=== PATIENT | female | born 1970 | race Caucasian/White ===

== ENCOUNTER 2020-06-24 18:28 | Emergency (ER) | payer MEDICAID, MEDICARE ==
[2020-06-24] MEDS ORDERED: Meclizine 25 MG Tab PO ONE (18:53)
[2020-06-24] MEDS ORDERED: Sodium Chloride 0.9% 1,000 ML IV ONE (18:53)
--- NOTE | 2020-06-24 19:10 | EDM.PDOC ---
ED HPI GENERAL MEDICAL PROBLEM - General Chief Complaint: General Stated Complaint: FEVER, COVID-19 + Time Seen by Provider: 06/24/20 18:53 Source of Information: Reports: Patient History Limitations: Reports: No Limitations - History of Present Illness INITIAL COMMENTS - FREE TEXT/NARRATIVE: Patient presents with vertigo for the last 8 days. She is covid positive for about 10 days. Diarrhea 3x/day yesterday and today. No vomiting. She can't drink large amounts of water due to history of gastric bypass and thinks she may be dehydrated. - Related Data Allergies Allergy/AdvReac Type Severity Reaction Status Date / Time morphine Allergy Vomiting Verified 06/24/20 18:33 Home Meds: Home Meds Cyclobenzaprine HCl 10 mg PO TID PRN 04/22/16 [History] Levothyroxine Sodium 100 mcg PO DAILY 04/22/16 [History] rOPINIRole [Requip] 1 tab PO BEDTIME 04/22/16 [History] Hydrocodone/Acetaminophen [Hydrocodon-Acetaminophen 5-300] 1 - 2 each PO Q4H PRN 08/26/16 [History] FLUoxetine [PROzac] 40 mg PO DAILY 06/24/20 [History] Past Medical History Cardiovascular History: Reports: Hypertension Genitourinary History: Reports: Other (See Below) Other Genitourinary History: Recent UTI Musculoskeletal History: Reports: Arthritis Psychiatric History: Reports: Depression Endocrine/Metabolic History: Reports: Hypothyroidism - Past Surgical History GI Surgical History: Reports: Bariatric Procedure, Other (See Below) Female Surgical History: Reports: Section, Hysterectomy ED ROS GENERAL - Review of Systems Review Of Systems: See Below Constitutional: Reports: Fever (up to 102 at home.) HEENT: Denies: Ear Pain, Throat Pain, Vision Change Respiratory: Denies: Shortness of Breath, Cough Cardiovascular: Reports: Lightheadedness. Denies: Chest Pain, Syncope GI/Abdominal: Reports: Diarrhea. Denies: Abdominal Pain, Vomiting : Denies: Dysuria, Flank Pain Musculoskeletal: Denies: Neck Pain, Shoulder Pain, Arm Pain, Back Pain, Hand Pain Skin: Denies: Cyanosis, Jaundice, Mottled, Pallor, Diaphoresis Neurological: Denies: Confusion, Headache, Seizure, Syncope, Trouble Speaking Psychiatric: Denies: Agitation, Confusion ED EXAM, GENERAL - Physical Exam Exam: See Below Exam Limited By: No Limitations General Appearance: Alert, WD/WN, No Apparent Distress Eye Exam: Bilateral Eye: EOMI, Normal Inspection, PERRL Ears: Normal External Exam, Normal Canal, Hearing Grossly Normal, Normal TMs Nose: Normal Inspection, No Blood Throat/Mouth: Normal Inspection, Normal Lips, Normal Oropharynx, Normal Voice, No Airway Compromise Head: Atraumatic, Normocephalic Neck: Normal Inspection, Non-Tender, Full Range of Motion Respiratory/Chest: No Respiratory Distress, Lungs Clear, Normal Breath Sounds, No Accessory Muscle Use Cardiovascular: Regular Rate, Rhythm, No Murmur Back Exam: Normal Inspection, Full Range of Motion. No: CVA Tenderness (L), CVA Tenderness (R) Extremities: Normal Inspection, Normal Range of Motion Neurological: Alert, Oriented, Normal Cognition, No Motor/Sensory Deficits, Other (DixHall Bailey positive to the left with mild nystagmus) Psychiatric: Normal Affect, Normal Mood Skin Exam: Warm, Dry, Intact, Normal Color, No Rash Course - Vital Signs Last Recorded V/S: Last Vital Signs Temp 97.5 F 06/24/20 18:33 Pulse 101 H 06/24/20 18:33 Resp 18 06/24/20 18:33 BP 171/107 H 06/24/20 18:33 Pulse Ox 97 06/24/20 18:33 - Orders/Labs/Meds Orders: Active Orders 24 hr Category Date Time Status Meclizine [Antivert] Med 06/24/20 18:53 Once 25 mg PO ONETIME ONE Sodium Chloride 0.9% @ 999 MLS/HR (1000ml) Med 06/24/20 18:53 Ordered Sodium Chloride 0.9% [Normal Saline] 1,000 ml IV .BOLUS - Re-Assessments/Exams Free Text/Narrative Re-Assessment/Exam: 06/24/20 20:22 Gave a liter of IV fluids and meclizine but patient says the vertigo is still there. We discussed treatment options and she will call PT for a treatment with [facility] on Wednesday since she will be off quarantine by then. Pt discharged to home in stable condition. Departure - Departure Time of Disposition: 20:16 Disposition: Home, Self-Care 01 Condition: Good Clinical Impression: COVID-19 BPPV (benign paroxysmal positional vertigo) Qualifiers: Laterality: left Qualified Code(s): H81.12 - Benign paroxysmal vertigo, left ear - Discharge Information Instructions: Vertigo, [id number], Benign Positional Vertigo Referrals: Miranda Velasco MD [Primary Care Provider] - Additional Instructions: Drink 8 cups of water daily. Use the Meclizine as directed if needed. Call Physical Therapy tomorrow to make appointment for Wednesday to get Arlene Maneuver. See your PCP or return to ER if worsening. Sepsis Event Note (ED) - Evaluation Sepsis Screening Result: Possible Sepsis Risk - Focused Exam Vital Signs: Vital Signs Temp Pulse Resp BP Pulse Ox 06/24/20 18:33 97.5 F 101 H 18 171/107 H 97 - My Orders Last 24 Hours: My Active Orders 06/24/20 18:53 Meclizine [Antivert] 25 mg PO ONETIME ONE Sodium Chloride 0.9% @ 999 MLS/HR (1000ml) Sodium Chloride 0.9% [Normal Saline] 1,000 ml IV .BOLUS - Assessment/Plan Last 24 Hours: My Active Orders 06/24/20 18:53 Meclizine [Antivert] 25 mg PO ONETIME ONE Sodium Chloride 0.9% @ 999 MLS/HR (1000ml) Sodium Chloride 0.9% [Normal Saline] 1,000 ml IV .BOLUS
[2020-06-24 19:47] VITALS: BP 154/85; PULSE 88
== END 2020-06-24 20:34 | disposition home or self-care (01) ==
LOC: KA.ED 18:28
DX: U07.1 COVID-19 (principal); H81.12 Benign paroxysmal vertigo, left ear; H81.22 Vestibular neuronitis, left ear; I10 Essential (primary) hypertension; F32.9 Major depressive disorder, single episode, unspecified; E03.9 Hypothyroidism, unspecified; Z88.5 Allergy status to narcotic agent; Z79.899 Other long term (current) drug therapy
CPT/HCPCS: 99283; 99284; A9270-GY; J7030

== ENCOUNTER 2020-06-27 18:01 | Emergency (ER) | payer SELFPAY ==
--- NOTE | 2020-06-27 18:43 | EDM.PDOC ---
ED HPI GENERAL MEDICAL PROBLEM - General Chief Complaint: General Stated Complaint: Shortness of breath, fevers, COVID+ Time Seen by Provider: 06/27/20 18:32 Source of Information: Reports: Patient History Limitations: Reports: No Limitations - History of Present Illness INITIAL COMMENTS - FREE TEXT/NARRATIVE: Patient presents with fever fluctuating between 100-103 the past 2 days. She was tested 7 days ago for Covid: positive. She also has body aches, intermittent dyspnea and cough. She says she had pneumonia 2 months ago. Headache Pain Score (Numeric/FACES): 7 - Related Data Allergies Allergy/AdvReac Type Severity Reaction Status Date / Time morphine Allergy Vomiting Verified 06/27/20 18:04 Home Meds: Home Meds Cyclobenzaprine HCl 10 mg PO BID 04/22/16 [History] rOPINIRole [Requip] 1 tab PO BEDTIME 04/22/16 [History] Hydrocodone/Acetaminophen [Hydrocodon-Acetaminophen 5-300] 1 - 2 each PO Q4H PRN 08/26/16 [History] FLUoxetine [PROzac] 40 mg PO DAILY 06/24/20 [History] Levothyroxine 112 mcg PO ASDIRECTED 06/27/20 [History] Past Medical History Cardiovascular History: Reports: Hypertension Genitourinary History: Reports: Other (See Below) Other Genitourinary History: Recent UTI Musculoskeletal History: Reports: Arthritis Psychiatric History: Reports: Depression Endocrine/Metabolic History: Reports: Hypothyroidism Other Endocrine/Metabolic History: graves disease - Infectious Disease History Infectious Disease History: Reports: Chicken Pox - Past Surgical History GI Surgical History: Reports: Bariatric Procedure Female Surgical History: Reports: Section, Hysterectomy Social & Family History - Tobacco Use Tobacco Use Status *Q: Former Tobacco User Used Tobacco, but Quit: Yes Month/Year Tobacco Last Used: 2014 - Caffeine Use Caffeine Use: Reports: Soda - Recreational Drug Use Recreational Drug Use: No ED ROS GENERAL - Review of Systems Review Of Systems: See Below Constitutional: Reports: Fever, Malaise. Denies: Chills, Weakness HEENT: Denies: Ear Pain, Throat Pain, Vision Change Respiratory: Reports: Shortness of Breath, Cough Cardiovascular: Denies: Chest Pain, Lightheadedness, Syncope Endocrine: Reports: Fatigue GI/Abdominal: Reports: Diarrhea. Denies: Abdominal Pain, Vomiting : Denies: Dysuria, Flank Pain Musculoskeletal: Denies: Neck Pain, Shoulder Pain, Arm Pain, Back Pain, Hand Pain Skin: Denies: Cyanosis, Jaundice, Mottled, Pallor Neurological: Denies: Confusion, Dizziness, Headache, Seizure, Syncope, Trouble Speaking, Difficulty Walking Psychiatric: Denies: Agitation, Anxiety, Confusion ED EXAM, GENERAL - Physical Exam Exam: See Below Exam Limited By: No Limitations General Appearance: Alert, WD/WN, No Apparent Distress Eye Exam: Bilateral Eye: EOMI, Normal Inspection, PERRL Ears: Normal External Exam, Hearing Grossly Normal Nose: Normal Inspection, No Blood Throat/Mouth: Normal Inspection, Normal Voice, No Airway Compromise Head: Atraumatic, Normocephalic Neck: Normal Inspection, Full Range of Motion Respiratory/Chest: No Respiratory Distress, Lungs Clear, Normal Breath Sounds, No Accessory Muscle Use Cardiovascular: Regular Rate, Rhythm, No Murmur GI/Abdominal: Normal Bowel Sounds, Soft, Non-Tender, No Organomegaly, No Distention Back Exam: Normal Inspection, Full Range of Motion. No: CVA Tenderness (L), CVA Tenderness (R) Extremities: Normal Inspection, Normal Range of Motion Neurological: Alert, Oriented, Normal Cognition, No Motor/Sensory Deficits Psychiatric: Normal Affect, Normal Mood Skin Exam: Warm, Dry, Intact, Normal Color, No Rash Course - Vital Signs Last Recorded V/S: Last Vital Signs Temp 97.8 F 06/27/20 18:54 Pulse 98 06/27/20 19:46 Resp 22 H 06/27/20 19:46 BP 145/93 H 06/27/20 19:46 Pulse Ox 92 L 06/27/20 19:46 - Orders/Labs/Meds Orders: Active Orders 24 hr Category Date Time Status Peripheral IV Care [RC] . DIRECTED Care 06/27/20 18:55 Active Sodium Chloride 0.9% [Saline Flush] Med 06/27/20 18:55 Active 10 ml FLUSH Q8HR PRN Isolation [COMM] Routine Oth 06/27/20 18:17 Ordered Peripheral IV Insertion Adult [OM.PC] Routine Oth 06/27/20 18:55 Ordered Medication Orders Sodium Chloride (Saline Flush) 10 ml FLUSH Q8HR PRN PRN Reason: keep vein open Labs: Laboratory Tests 06/27/20 06/27/20 06/27/20 Range/Units 18:50 18:50 18:50 WBC 6.10 (5.00-10.00) 10^3/uL RBC 4.64 (3.80-5.50) 10^6/uL Hgb 12.1 (12.0-16.0) g/dL Hct 37.3 (37.0-47.0) % MCV 80.4 L (82.0-92.0) fL MCH 26.1 L (27.0-31.0) pg MCHC 32.4 (32.0-36.0) g/dL RDW 15.7 H (11.5-14.5) % Plt Count 216 (150-400) 10^3/uL MPV 10.2 (7.4-10.4) fL Immature Gran % (Auto) 0.2 (0.0-5.0) % Neut % (Auto) 76.6 H (50.0-70.0) % Lymph % (Auto) 18.2 L (20.0-40.0) % [place] % (Auto) 4.6 (2.0-8.0) % Eos % (Auto) 0.2 L (1.0-3.0) % Baso % (Auto) 0.2 (0.0-1.0) % Neut # (Auto) 4.68 (2.50-7.00) 10^3/uL Lymph # (Auto) 1.11 (1.00-4.00) 10^3/uL [place] # (Auto) 0.28 (0.10-0.80) 10^3/uL Eos # (Auto) 0.01 L (0.10-0.30) 10^3/uL Baso # (Auto) 0.01 (0.00-0.10) 10^3/uL Immature Gran # (Auto) 0.01 (0.00-0.50) 10^3/uL Sodium 137 (136-145) mmol/L Potassium 3.1 L (3.3-5.3) mmol/L Chloride 100 (98-115) mmol/L Carbon Dioxide 22.3 (21.0-32.0) mmol/L Anion Gap 17.8 H (5-15) mmol/L BUN 6 (6-25) mg/dL Creatinine 0.57 (0.51-1.17) mg/dL Est Cr Clr Drug Dosing 104.11 mL/min Estimated GFR (MDRD) > 60 mL/min Glucose 118 H (75 - 99) mg/dL Lactic Acid 0.9 (0.4-2.0) mmol/L Calcium 8.0 L (8.7-10.3) mg/dL Meds: Medications Generic Name Dose Route Start Last Admin Trade Name Freq PRN Reason Stop Dose Admin Sodium Chloride 10 ml 06/27/20 18:55 Saline Flush FLUSH Q8HR PRN keep vein open Discontinued Medications Generic Name Dose Route Start Last Admin Trade Name Freq PRN Reason Stop Dose Admin Azithromycin 500 mg 06/27/20 19:55 Zithromax PO 06/27/20 19:56 ONETIME ONE Dexamethasone 6 mg 06/27/20 19:58 Dexamethasone PO 06/27/20 19:59 ONETIME ONE - Re-Assessments/Exams Free Text/Narrative Re-Assessment/Exam: 06/27/20 20:01 Labs okay. CXR shows bilat infiltrates. I discussed case with Dr. Mcdaniel, radiologist. We feel this is most likely Covid-related pneumonia but can't rule out bacterial for sure. Discussed findings with patient and will treat with Zithromax and Dexamethasone. I discussed with patient that Zithromax has some benefit beyond its antibacterial properties that helps some even without a bacterial infection. She says she took it 2 months ago and it definitely seemed to help a "viral" pneumonia at that time. Discharged to home in stable condition. Departure - Departure Time of Disposition: 19:55 Disposition: Home, Self-Care 01 Condition: Good Clinical Impression: Pneumonia due to COVID-19 virus - Discharge Information Forms: ED Department Discharge Additional Instructions: Drink 8 cups of water daily. Take the medications as directed. Follow up with your PCP if worsening or not improving in a few days. Return to ER as needed for significant worsening. Sepsis Event Note (ED) - Evaluation Sepsis Screening Result: Possible Sepsis Risk - Focused Exam Vital Signs: Vital Signs Temp Pulse Resp BP Pulse Ox 06/27/20 19:46 98 22 H 145/93 H 92 L 06/27/20 19:31 98 20 151/89 H 92 L 06/27/20 19:16 101 H 18 149/104 H 93 L 06/27/20 19:01 96 22 H 153/84 H 91 L 06/27/20 18:54 97.8 F 95 17 154/86 H 93 L 06/27/20 18:13 99.8 F 99 20 159/87 H 100 - My Orders Last 24 Hours: My Active Orders 06/27/20 18:17 Isolation [COMM] Routine 06/27/20 18:55 Peripheral IV Care [RC] . DIRECTED Sodium Chloride 0.9% [Saline Flush] 10 ml FLUSH Q8HR PRN Peripheral IV Insertion Adult [OM.PC] Routine - Assessment/Plan Last 24 Hours: My Active Orders 06/27/20 18:17 Isolation [COMM] Routine 06/27/20 18:55 Peripheral IV Care [RC] . DIRECTED Sodium Chloride 0.9% [Saline Flush] 10 ml FLUSH Q8HR PRN Peripheral IV Insertion Adult [OM.PC] Routine
[2020-06-27] MEDS ORDERED: Sodium Chloride 0.9% 10 ML Syringe FLUSH PRN (18:55)
[2020-06-27 19:35] LABS: ANION GAP 17.8 mmol/L (5-15); CHLORIDE,CL 100 mmol/L (98-115); SODIUM,NA 137 mmol/L (136-145)
--- NOTE | 2020-06-27 19:38 | CR ---
[id number] RAD/RAD Chest PA or AP 1V EXAM: FRONTAL CHEST INDICATION: Fever and dyspnea. COMPARISON: None. DISCUSSION: Mild patchy multifocal bilateral infiltrates most consistent with infection including potential Covid 19. No effusions. Normal heart size. IMPRESSION: 1. Mild patchy bilateral infiltrates. Ismael Mcdaniel MD 06/27/20 [id number] Thank you for allowing us to participate in the care of your patient.
[2020-06-27] MEDS ORDERED: Azithromycin 250 MG Tab PO ONE (19:55)
[2020-06-27] MEDS ORDERED: Dexamethasone 4 MG Tab PO ONE (19:58)
[2020-06-27 22:23] VITALS: BP 146/89; PULSE 98
== END 2020-06-27 20:34 | disposition home or self-care (01) ==
LOC: SUPCPDRO 18:01 → KA.ED 18:01
DX: U07.1 COVID-19 (principal); J12.89 Other viral pneumonia; I10 Essential (primary) hypertension; F32.9 Major depressive disorder, single episode, unspecified; E03.9 Hypothyroidism, unspecified; Z87.891 Personal history of nicotine dependence; Z88.5 Allergy status to narcotic agent; Z79.899 Other long term (current) drug therapy
CPT/HCPCS: 71045; 80048; 83605; 85025; 99284; 99285-25; A9270-GY; J8540